=== PATIENT | female | born 1960 | race Caucasian/White ===

== ENCOUNTER 2021-02-16 14:12 | Emergency (ER) | payer OTHER, BC ==
[2021-02-16 14:44] VITALS: BP 146/92; PULSE 68
--- NOTE | 2021-02-16 15:08 | EDM.PDOC ---
ED HPI GENERAL MEDICAL PROBLEM - General Chief Complaint: Upper Extremity Injury/Pain Stated Complaint: FELL AT WORK Time Seen by Provider: 02/16/21 14:20 Source of Information: Reports: Patient History Limitations: Reports: No Limitations - History of Present Illness INITIAL COMMENTS - FREE TEXT/NARRATIVE: Patient presented to the ED because of of Rt wrist pain. She apparently slipped and fell, landed on her RT wrist while changing the catheter of a resident at [facility]. She is able to extent and flex her fingers without any difficulty. Right Wrist Pain Score (Numeric/FACES): 4 - Related Data Allergies Allergy/AdvReac Type Severity Reaction Status Date / Time No Known Allergies Allergy Verified 04/23/13 02:56 Home Meds: Home Meds NK [No Known Home Meds] 04/23/13 [History] Past Medical History - Past Health History Medical/Surgical History: Denies Medical/Surgical History Review of Systems - Review of Systems Review Of Systems: See Below Constitutional: Reports: No Symptoms Eyes: Reports: No Symptoms Ears: Reports: No Symptoms Nose: Reports: No Symptoms Mouth/Throat: Reports: No Symptoms Respiratory: Reports: No Symptoms Cardiovascular: Reports: No Symptoms GI/Abdominal: Reports: No Symptoms Genitourinary: Reports: No Symptoms Musculoskeletal: Reports: Joint Pain, Joint Swelling Skin: Reports: No Symptoms Neurological: Reports: No Symptoms Psychiatric: Reports: No Symptoms ED EXAM, GENERAL - Physical Exam Exam: See Below Exam Limited By: No Limitations General Appearance: Alert, No Apparent Distress Eye Exam: Bilateral Eye: PERRL Ears: Normal External Exam, Normal Canal Nose: Normal Inspection, Normal Mucosa, No Blood Throat/Mouth: Normal Inspection, Normal Lips, Normal Teeth, Normal Gums Head: Atraumatic, Normocephalic Neck: Normal Inspection, Supple, Non-Tender, Full Range of Motion Respiratory/Chest: No Respiratory Distress, Lungs Clear, Normal Breath Sounds, No Accessory Muscle Use, Chest Non-Tender Cardiovascular: Normal Peripheral Pulses, Regular Rate, Rhythm, No Edema, No Gallop, No JVD, No Murmur, No Rub GI/Abdominal: Normal Bowel Sounds, Soft, Non-Tender, No Organomegaly, No Distention, No Abnormal Bruit Back Exam: Normal Inspection, Full Range of Motion Extremities: Limited Range of Motion, Other (tenderess and swelling medial aspect of the Rt wrist.) Neurological: Alert Psychiatric: Normal Affect Course - Vital Signs Text/Narrative:: Ortho glass splint was made and applied by me Refused arm/shoulder sling Last Recorded V/S: Last Vital Signs Temp 37.5 C 02/16/21 14:12 Pulse 68 02/16/21 14:12 Resp 20 02/16/21 14:12 BP 146/92 H 02/16/21 14:12 Pulse Ox 95 02/16/21 14:12 Departure - Departure Time of Disposition: 15:10 Disposition: Home, Self-Care 01 Condition: Good Clinical Impression: Distal radial fracture, Ulnar fracture - Discharge Information Instructions: Radial Fracture, Wrist Fracture Treated With Immobilization, [id number] Referrals: Chele Stanton MD [Primary Care Provider] - Forms: ED Department Discharge Additional Instructions: Please read discharge instructions on wrist fracture Elevate Take ibuprofen 600 mg with tylenol 500 mg every 4-6 hours as needed for pain Call the [facility] so they can refer you to see an orthopedic doctor this week or next week Sepsis Event Note (ED) - Evaluation Sepsis Screening Result: No Definite Risk - Focused Exam Vital Signs: Vital Signs Temp Pulse Resp BP Pulse Ox 02/16/21 14:12 37.5 C 68 20 146/92 H 95
--- NOTE | 2021-02-16 16:06 | CR ---
RIGHT WRIST INDICATION: Right wrist pain after fall. FINDINGS: Three views of the right wrist 02/16/21 - no comparisons. Volar fat pad deviation is noted suggesting a wrist joint effusion. A tiny chip fracture fragment is noted with minimal offset at the ulnar styloid. A slightly oblique fracture through the medial aspect of the distal radial metaphysis is noted with minimal separation of the fracture fragments. Degenerative changes of moderate degree are noted at the first metacarpal-carpal joint and minimally at the second metacarpal-carpal joint. IMPRESSION: 1. Radial and ulnar fractures in adequate position and alignment. 2. Osteoarthritis. 3. Probable small wrist joint effusion. MTDD
== END 2021-02-16 15:39 | disposition home or self-care (01) ==
LOC: FB.ED 14:12
DX: S52.511A Displaced fracture of right radial styloid process, initial encounter for closed fracture (principal); S52.611A Displaced fracture of right ulna styloid process, initial encounter for closed fracture; W01.0XXA Fall on same level from slipping, tripping and stumbling without subsequent striking against object, initial encounter
CPT/HCPCS: 29125; 73110-RT; 99000; 99283-25